=== PATIENT | male | born 1945 | race Caucasian/White ===

== ENCOUNTER → 2016-10-12 | Day surgery (SDC) | payer MEDICARE | END | disposition home or self-care (01) | LOC: FAS 10-07 08:00 | DX: Z12.11 Encounter for screening for malignant neoplasm of colon (principal); D12.2 Benign neoplasm of ascending colon; N52.9 Male erectile dysfunction, unspecified; E78.00 Pure hypercholesterolemia, unspecified; Z87.891 Personal history of nicotine dependence; Z90.49 Acquired absence of other specified parts of digestive tract; Z88.5 Allergy status to narcotic agent; Z98.890 Other specified postprocedural states | CPT/HCPCS: 88305; J2704 ==

== ENCOUNTER → 2020-05-27 | Day surgery (SDC) | payer MEDICARE, OTHER ==
[~2020-05-27] MED LIST: CARAFATE1 GM PO; CARTIA XT180 MG PO; PROTONIX 40MG T40 MG PO
== END | disposition home or self-care (01) ==
LOC: FAS 10:29
DX: K21.9 Gastro-esophageal reflux disease without esophagitis (principal); K31.9 Disease of stomach and duodenum, unspecified; K29.50 Unspecified chronic gastritis without bleeding; D12.0 Benign neoplasm of cecum; D12.3 Benign neoplasm of transverse colon; D12.2 Benign neoplasm of ascending colon; K25.9 Gastric ulcer, unspecified as acute or chronic, without hemorrhage or perforation; K29.80 Duodenitis without bleeding; K57.30 Diverticulosis of large intestine without perforation or abscess without bleeding; I25.10 Atherosclerotic heart disease of native coronary artery without angina pectoris; I10 Essential (primary) hypertension; Z88.5 Allergy status to narcotic agent; Z90.49 Acquired absence of other specified parts of digestive tract; Z87.891 Personal history of nicotine dependence
CPT/HCPCS: 88305; 88342; J2704; J7120

== ENCOUNTER → 2021-01-12 | Day surgery (SDC) | payer MEDICARE, OTHER ==
[~2021-01-12] VITALS: Ht 172.7 cm; Wt 81.6 kg
[~2021-01-12] MED LIST changes: +CLARITIN-D 121 EACH PO; +CLARITIN10 MG PO; +GARLIC1 EAC1 PO
[2021-01-12 12:25] LABS: HCT 46.9 % (42.0-52.0); HGB 15.5 g/dl (13.2-18.0); MCH 30.5 pg (25.0-31.0); MCV 92.3 fL (78.0-100.0); MPV 11.5 fL (6.0-9.5); RBC 5.08 M/uL (4.70-6.00); RDW 13.8 % (11.5-14.0); WBC 8.3 K/uL (4.0-10.5)
[2021-01-12 12:52] LABS: ALBUMIN 3.5 g/dL (3.4-5.0); BILIRUBIN - TOTAL 0.6 mg/dL (0.2-1.0); BUN/CREAT RATIO (CALC) 15.6 RATIO; CREATININE 0.77 mg/dL (0.67-1.17); POTASSIUM 4.3 mmol/L (3.5-5.1); TOTAL PROTEIN 7.5 g/dL (6.4-8.2)
== END | disposition home or self-care (01) ==
LOC: FAS 11:21
PROVIDERS: Student in an Organized Health Care Education/Training Program
DX: K31.89 Other diseases of stomach and duodenum (principal); K57.30 Diverticulosis of large intestine without perforation or abscess without bleeding; D12.6 Benign neoplasm of colon, unspecified; I49.9 Cardiac arrhythmia, unspecified; I10 Essential (primary) hypertension; Z88.6 Allergy status to analgesic agent; Z79.899 Other long term (current) drug therapy; Z90.89 Acquired absence of other organs; Z87.891 Personal history of nicotine dependence; I48.91 Unspecified atrial fibrillation; E78.00 Pure hypercholesterolemia, unspecified
CPT/HCPCS: 36415; 80053; 88305; J2250; J2704; J7120